=== PATIENT | female | born 1930 | race Caucasian/White ===

== ENCOUNTER 2018-11-18 16:36 | Inpatient (IN) ==
[2018-11-18 20:16] LABS: ALLEN TEST YES; BE -0.4 mmoll (-3.0-3.0); BLOOD TYPE ARTERIAL; HCO3-(ACT) 24.6 mmoll (20.0-26.0); METHB 1.3 % (0.0-1.5); O2(CT) 15.9 mL/dL (15.0-23.0); O2HB 96.3 % (95.0-99.0); PCO2(98.6) 38 mmHg (35-45); PO2(98.6) 106 mmHg (60-100); SAMPLE BLOOD; SAO2 98.6 % (95.0-100.0); THB 11.6 g/dL (11.5-17.4); pH(98.6) 7.41 (7.35-7.45)
[2018-11-18 20:17] LABS: MODALITY CANNULA
[2018-11-18] MEDS: LOVENOX SUBQ SCH (21:10)
[2018-11-18 21:12] LABS: BASO# 0.01 X1000 (0.0-0.2); BASO% 0.2 % (0.0-0.8); EOS# 0.19 X1000 (0.0-0.7); EOS% 3.2 % (0.0-10.0); HEMATOCRIT 35.8 % (37.0-47.0); HEMOGLOBIN 11.7 g/dL (12.0-16.0); IMM GRAN# 0.02 X1000 (0.0-0.04); IMM GRAN% 0.3 % (0.0-0.5); LYMPH# 1.75 X1000 (1.2-3.4); LYMPH% 29.8 % (20.5-51.1); MCH 29.3 PG (27-31); MCHC 32.7 g/dL (33-37); MCV 89.7 FL (81-99); MONO# 0.66 X1000 (0.11-0.59); MONO% 11.2 % (1.7-9.3); MPV 8.7 FL (7.4-10.4); NEUT# 3.25 X1000 (1.4-6.5); NEUT% 55.3 % (42.2-75.2); PLT 206 X1000 (130-400); RBC 3.99 XMIL (4.2-5.4); RDW 13.3 % (11.5-14.5); WBC 5.88 X1000 (4.8-10.8)
[2018-11-18 21:21] LABS: INR 1.13; PROTIME 14.7 Seconds (11.0-16.0)
[2018-11-18] MEDS: LEVAQUIN 500 MG/D5W 500 MG/100 ML IVPB IV SCH (21:23)
--- NOTE | 2018-11-18 21:28 | Diag Imaging Result Doc PS360 ---
CHEST-2 VIEWS - 11/18/2018 INDICATION: SOB COMPARISON: 06/19/2018 FINDINGS: There is a tiny opacity likely a small granuloma, in the lateral left costophrenic angle. Otherwise the lungs are clear of infiltrate. Heart size and pulmonary vascularity is normal. No pneumothorax or significant pleural effusion. Stable old compression fracture at L1. IMPRESSION: No acute process. Electronically signed by Russel Vanessa 11/18/2018 9:26 PM
[2018-11-18 21:38] LABS: CALCIUM 9.2 mg/dL (8.8-10.2); POTASSIUM 3.9 mmol/L (3.5-5.1)
[2018-11-18] MEDS ORDERED: SODIUM CHLORIDE 0.9% INJ SCH (21:45)
--- NOTE | 2018-11-18 22:07 | HISTORY AND PHYSICAL ---
CHIEF COMPLAINT: Barking cough, shortness of breath, wheezing. HPI: She is an 88-year-old white female was seen in my office today. Basically is the 3rd time with COPD exacerbation with bronchitis. Obviously patient was given 3 rounds of antibiotics without any help. She has nonproductive cough, dyspnea on exertion, wheezing. I did not find any significant rales. Clinical exam is compatible with laryngotracheitis associated with COPD exacerbation. She is taking 3 L oxygen. She cannot even go to the bathroom. Options are discussed and family decided to go to the hospital for aggressive bronchial toilet, IV antibiotics. PAST MEDICAL HISTORY: 1. COPD on oxygen 3 L. 2. 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 3. Compression fracture T11-T12. 4. Gout. 5. Hyperlipidemia. 6. Hypothyroidism. 7. Osteoarthritis. 8. Osteoporosis. 9. Incontinence of urine. PAST SURGICAL HISTORY: Varicose veins ligation in 1976, benign breast biopsy surgery, cholecystectomy, bilateral cataract surgery, hysterectomy in 1973. MEDICATIONS: In my office amitriptyline 75 mg daily, Brovana 1 b.i.d., Bumex 2 mg once daily, levothyroxine 125 mcg daily, potassium 10 mEq daily, Savella 50 mg daily, simvastatin 40 mg daily, tolterodine 2 mg daily, tramadol 50 p.o. b.i.d., patient was given multiple rounds of antibiotics. ALLERGIES: Not known. SOCIAL HISTORY: She is , 1 daughter, retired. No smoking. No alcohol. No drug abuse. Living in [place], living will, DNR. FAMILY HISTORY: Father at the age of 94 from heart attack. Mom is from COPD and heart attack. HEALTH MAINTENANCE: Reported as a living will DNR. Flu vaccine 2018, pneumococcal 2002, mammography 2019, DEXA scan 2018, colonoscopy more than 10 years ago. REVIEW OF SYSTEMS: HEENT: No headache, no vision problem. No earache. No sore throat. Neck: No goiter. No lymphadenopathy. No bruit . Cardiopulmonary: No chest pain, shortness of breath, cough, wheezing. No lumps in the breast. GI: No nausea, vomiting, abdominal pain. : No history of hesitancy, frequency, dysuria. No swelling of legs. No joint pain. Neuro: No focal symptoms or weakness. PHYSICAL EXAMINATION: Temperature is 98.4 degrees, pulse is 115, blood pressure 136/76, 3 L nasal cannula 93%, 5 feet 9, 185 pounds. HEENT: Mild respiratory distress. Atraumatic, normocephalic. TMs are normal. Nose and throat congested. Postnasal drainage. NECK: Supple. No neck rigidity and JVD is not elevated. CHEST: Bilateral wheezing. HEART: Sounds are distant. BREAST: Deferred. BELLY: Is soft, obese, nontender. Good bowel sounds. Trace pedal edema. No obvious neurological deficits. LABS: White cell count 5.8, hematocrit 35.8, platelets 206,000. PT 14, INR 1.13. ABG pH is 7.41, pCO2 38, PO2 106 on 3 L. Rest of the labs are pending. Chest x-ray stable. ASSESSMENT AND PLAN: 1. 88-year-old white female admitted to the hospital with acute chronic obstructive pulmonary disease exacerbation with laryngotracheitis. Plan is IV steroids, IV Levaquin and Zosyn. Oxygen protocol, bronchodilators. 2. DVT, GI prophylaxis as per order sheet. 3. Reconcile home medications and follow up on the pending labs and initiate vaccination protocol prior to the discharge. Living will, DNR. cc: Pavan Stanley MD [facility]
[2018-11-18] MEDS: PEPCID IV SCH (23:05)
[2018-11-18] MEDS: ZOSYN 3.375 GM in NS 50 ML IV SCH (23:05)
[2018-11-19] MEDS: ULTRAM PO PRN ×2 (01:46→20:12)
[2018-11-19] MEDS: ZOSYN 3.375 GM in NS 50 ML IV SCH ×4 (03:05→20:11)
[2018-11-19] MEDS: SOLU-MEDROL IV SCH (08:21)
[2018-11-19] MEDS: DETROL LA PO SCH (08:22)
[2018-11-19] MEDS: KLOR-CON PO SCH (08:22)
[2018-11-19] MEDS: CELEBREX PO SCH (08:22)
[2018-11-19] MEDS: BUMEX PO SCH (08:23)
[2018-11-19] MEDS: SAVELLA PO SCH (08:23)
[2018-11-19] MEDS: SYNTHROID PO SCH (08:34)
[2018-11-19] MEDS: PEPCID IV SCH ×2 (09:11→21:31)
[2018-11-19] MEDS: DUONEB (A & A) INH PRN ×3 (11:23→21:43)
[2018-11-19] MEDS: LEVAQUIN 500 MG/D5W 500 MG/100 ML IVPB IV SCH (18:14)
[2018-11-19] MEDS: ZOCOR PO SCH (20:12)
[2018-11-19] MEDS: LOVENOX SUBQ SCH (20:12)
--- NOTE | 2018-11-19 22:02 | PROGRESS NOTE ---
DATE: 11/19/2018 SUBJECTIVE: The patient is eating better, decreased wheezing, shortness of breath. Continues to have a barking cough, nonproductive in nature. REVIEW OF SYSTEMS: The patient denies of any chest pain. No fever. OBJECTIVE: Vital signs: Temperature is 98.2 degrees, pulse 66, blood pressure is 157/78, 100% on 3 L nasal cannula. HEENT: Exam within normal limits. Neck: Supple. Chest: Bilateral air entry. Expiratory wheezing. Cardiovascular: Heart sounds are regular. Abdomen: Belly is soft, nontender. Neurological: No obvious deficits. INVESTIGATIONS: CBC is normal. Chest x-ray was stable. ProBNP, cardiac enzymes were negative. ASSESSMENT AND PLAN: 1. Acute chronic obstructive pulmonary disease exacerbation with laryngotracheitis and bronchitis, not getting better with 3 rounds of antibiotics. Continue on IV steroids and IV Levaquin and Zosyn, oxygen, bronchodilators. 2. Follow up EKG. Cardiac enzymes are negative. 3. Living will DNR. 4. Initiate vaccination protocol prior to the discharge. Continue present treatment. LEVEL OF DOCUMENTATION: 25 minutes. cc: Pavan Stanley MD
[2018-11-20] MEDS: ZOSYN 3.375 GM in NS 50 ML IV SCH ×4 (01:10→22:19)
[2018-11-20] MEDS: SYNTHROID PO SCH (06:13)
[2018-11-20] MEDS: BUMEX PO SCH (09:04)
[2018-11-20] MEDS: KLOR-CON PO SCH (09:04)
[2018-11-20] MEDS: SAVELLA PO SCH (09:05)
[2018-11-20] MEDS: DETROL LA PO SCH (09:05)
[2018-11-20] MEDS: CELEBREX PO SCH (09:05)
[2018-11-20] MEDS: SOLU-MEDROL IV SCH (09:05)
[2018-11-20] MEDS: DUONEB (A & A) INH PRN (11:41)
[2018-11-20] MEDS ORDERED: ATIVAN IV ONE ×2 (17:02→20:39)
[2018-11-20] MEDS: LEVAQUIN 500 MG/D5W 500 MG/100 ML IVPB IV SCH (18:16)
--- NOTE | 2018-11-20 20:57 | PROGRESS NOTE ---
DATE: 11/20/2018 SUBJECTIVE: The patient's breathing is better, slightly confused, sundown affect in the evening. Barking cough is still there. No wheezing. PHYSICAL EXAM: Vital signs: Afebrile vitals are stable. HEENT: Within normal limits. Neck: Supple. Chest: Bilateral air entry. Heart: Sounds are regular. Abdomen: Belly is soft, nontender. Neurologic: No obvious deficits. INVESTIGATIONS: Stable. ASSESSMENT AND PLAN: 1. Acute chronic obstructive pulmonary disease exacerbation with laryngotracheitis, not able to felipe. Continue present treatment. 2. Deep vein thrombosis and gastrointestinal prophylaxis as per order sheet. Decrease the steroids. 3. Hugo affect with confusion. We will give Ativan as needed and will discuss with the family and continue present treatment. LEVEL OF DOCUMENTATION: 35 minutes. cc: Pavan Stanley MD
[2018-11-20] MEDS ORDERED: ATIVAN IM ONE (21:03)
[2018-11-20] MEDS ORDERED: HALDOL IM ONE (21:04)
[2018-11-20] MEDS: LOVENOX SUBQ SCH (21:47)
[2018-11-20] MEDS: PEPCID PO SCH (21:48)
[2018-11-20] MEDS: ZOCOR PO SCH (21:48)
[2018-11-21] MEDS: ZOSYN 3.375 GM in NS 50 ML IV SCH ×4 (06:24→19:54)
[2018-11-21] MEDS: SYNTHROID PO SCH (06:24)
[2018-11-21] MEDS: CELEBREX PO SCH (09:02)
[2018-11-21] MEDS: KLOR-CON PO SCH (09:02)
[2018-11-21] MEDS: PEPCID PO SCH ×2 (09:02→20:45)
[2018-11-21] MEDS: SOLU-MEDROL IV SCH (09:02)
[2018-11-21] MEDS: BUMEX PO SCH (09:02)
[2018-11-21] MEDS: SAVELLA PO SCH (09:28)
[2018-11-21] MEDS: DETROL LA PO SCH (09:28)
[2018-11-21] MEDS: LEVAQUIN 500 MG/D5W 500 MG/100 ML IVPB IV SCH (18:13)
[2018-11-21] MEDS: ULTRAM PO PRN (19:25)
[2018-11-21] MEDS ORDERED: GEODON IM ONE (19:50)
[2018-11-21] MEDS ORDERED: STERILE WATER INJ. INJ PRN (19:50)
[2018-11-21] MEDS ORDERED: STERILE WATER INJ. INJ ONE (19:50)
[2018-11-21] MEDS: CARDIZEM 125 MG/D5W 125 MG/125 ML IVPB IV SCH (20:44)
[2018-11-21] MEDS: ZOCOR PO SCH (20:45)
[2018-11-21] MEDS: LOVENOX SUBQ SCH (20:46)
--- NOTE | 2018-11-21 20:56 | EKG Report ---
Test Performed on : 11/21/2018 7:35:34 PM Test Reason : HR Blood Pressure : / mmHG Vent. Rate : 114 BPM Atrial Rate : 125 BPM P-R Int : 000 ms QRS Dur : 080 ms QT Int : 328 ms P-R-T Axes : 000 -13 -06 degrees QTc Int : 452 ms Atrial fibrillation. with rapid ventricular response. Moderate voltage criteria for LVH, may be normal variant ST elevation, consider inferior injury or acute infarct ACUTE LA / STEMI Consider right ventricular involvement in acute inferior infarct Abnormal ECG When compared with ECG of Nov-[address] elevation is new, as is ST depression in aVL, ventricular rate is faster Confirmed by Citlali QUINTANILLA, Jere Randolph ([id number]) on 11/21/2018 9:04:30 PM
[2018-11-21 21:14] LABS: CK INDEX 2.8 (0.0-2.5); CK-MB 7.15 ng/mL (0.0-5.0)
--- NOTE | 2018-11-21 21:48 | PROGRESS NOTE ---
DATE: 11/21/2018 SUBJECTIVE: Last night patient has sundown affect. Gave Adderall, Arielle, transferred to the ICU. She is anxious to go home. This morning she was a little bit docile. Family was at bedside. This afternoon the patient started having atrial fibrillation. OBJECTIVE: On examination afebrile, vitals are stable. The patient was sedated. Chest is clear. Irregular heart sounds. Belly is soft, nontender. No obvious deficits. INVESTIGATIONS: Cardiac enzymes were slightly positive. Troponin was negative. ProBNP 333. Chest x-ray was stable. ASSESSMENT AND PLAN: 1. Altered mental status due to delirium tremens. 2. Acute chronic obstructive pulmonary disease. Continue present treatment. 3. New onset of atrial fibrillation and Dr. Barragan ordered a Cardizem drip and cardiac enzymes. 4. Deep vein thrombosis and gastrointestinal prophylaxis as per order sheet. We will hold the discharge and will follow up cardiac enzymes. cc: Pavan Stanley MD
[2018-11-22] MEDS: ZOSYN 3.375 GM in NS 50 ML IV SCH ×4 (02:45→21:00)
[2018-11-22 05:12] LABS: BASO# 0.01 X1000 (0.0-0.2); BASO% 0.1 % (0.0-0.8); EOS# 0.01 X1000 (0.0-0.7); EOS% 0.1 % (0.0-10.0); HEMATOCRIT 37.3 % (37.0-47.0); HEMOGLOBIN 12.5 g/dL (12.0-16.0); LYMPH# 2.18 X1000 (1.2-3.4); LYMPH% 26.4 % (20.5-51.1); MCH 29.5 PG (27-31); MCHC 33.5 g/dL (33-37); MONO# 1.06 X1000 (0.11-0.59); MONO% 12.8 % (1.7-9.3); MPV 9.4 FL (7.4-10.4); NEUT# 5.01 X1000 (1.4-6.5); NEUT% 60.6 % (42.2-75.2); PLT 210 X1000 (130-400); RBC 4.24 XMIL (4.2-5.4); RDW 13.4 % (11.5-14.5); WBC 8.27 X1000 (4.8-10.8)
[2018-11-22] MEDS: SYNTHROID PO SCH (06:28)
--- NOTE | 2018-11-22 07:03 | EKG Report ---
Test Performed on : 11/22/2018 06:42:41 AM Test Reason : cp Blood Pressure : / mmHG Vent. Rate : 062 BPM Atrial Rate : 062 BPM P-R Int : 174 ms QRS Dur : 076 ms QT Int : 422 ms P-R-T Axes : -45 010 037 degrees QTc Int : 428 ms Unusual P axis, possible ectopic atrial rhythm. with premature atrial complexes. Low voltage QRS Abnormal ECG When compared with ECG of 21-NOV-2018 19:35, Ectopic atrial rhythm. has replaced Atrial fibrillation. Vent. rate has decreased BY [address] no longer elevated in Inferior leads ST no longer depressed in Lateral leads Nonspecific T wave abnormality has replaced inverted T waves in Inferior leads Nonspecific T wave abnormality no longer evident in Anterior leads Confirmed by Citlali QUINTANILLA, Jere Randolph ([id number]) on 11/22/2018 1:58:03 PM
[2018-11-22] MEDS: SAVELLA PO SCH (08:56)
[2018-11-22] MEDS: PEPCID PO SCH ×2 (08:56→21:14)
[2018-11-22] MEDS: SOLU-MEDROL IV SCH (08:56)
[2018-11-22] MEDS: BUMEX PO SCH (08:57)
[2018-11-22] MEDS: KLOR-CON PO SCH (08:57)
[2018-11-22] MEDS: CELEBREX PO SCH (08:57)
[2018-11-22] MEDS: DETROL LA PO SCH (08:57)
[2018-11-22] MEDS ORDERED: CARDIZEM IV ONE (14:18)
--- NOTE | 2018-11-22 17:23 | ECHO REPORT ---
ORDER DATE: 11/22/2018 ECHOCARDIOGRAPHIC MEASUREMENTS: 1. Interventricular septum 1.1. 2. Left ventricular posterior wall 1.1. 3. Diastolic diameter 4.0. 4. Left atrium 4. 5. Aorta 3.6. SUMMARY OF THE TWO-DIMENSIONAL IMAGIN. Mitral valve was normal. 2. Pulmonic valve was normal. 3. Aortic valve leaflets were trileaflet. 4. Tricuspid valve was normal. 5. There is mitral annular calcification. 6. There is left atrial enlargement. 7. Mild tricuspid regurgitation. Peak velocity across the tricuspid valve was 2.4 m/sec. 8. Pulmonary artery systolic pressure of 33 mmHg. 9. Peak velocity across the aortic valve less than 2 m/sec. There is no aortic stenosis or regurgitation. 10. Normal left ventricular cavity size. Estimated ejection fraction of 65%. 11. There is atrial fibrillation noted. 12. There is [id number] mitral regurgitation. 13. Anterior echo-free space suggestive of pericardial fat pad noted. There is no pericardial effusion or obvious intracardiac mass or thrombus seen. cc: MD Sonny Oglesby MD Jagan Reddy, MD MTDD
[2018-11-22] MEDS: LOVENOX SUBQ SCH (17:50)
[2018-11-22] MEDS: LEVAQUIN 500 MG/D5W 500 MG/100 ML IVPB IV SCH (17:50)
--- NOTE | 2018-11-22 17:57 | PROGRESS NOTE ---
DATE: 11/22/2018 SUBJECTIVE: The patient is now stable. Mental confusion is better. Currently, in sinus, off Cardizem drip. Echocardiography findings noted EF is 65%. No chest pain. No cough. OBJECTIVE: Vitals: Stable. HEENT: Within normal limits. Neck: Supple. Decreased wheezing. Heart sounds are regular. No obvious deficits. INVESTIGATIONS: Cardiac enzymes were normal. TSH is normal. ASSESSMENT AND PLAN: 1. Paroxysmal atrial fibrillation. Normal TSH. Normal echo. Ruled out for myocardial infarction. High risk for strokes. We will discuss with the family. 2. Chronic obstructive pulmonary disease with bronchitis. Continue present treatment. 3. Delirium. Improving. 4. Appreciated Cardiology consult. Currently, on Lovenox 80 mg subcutaneous q.12. We will discuss with Dr. Brown about the transitioning of anticoagulation. LEVEL OF DOCUMENTATION: 25 minutes. cc: Pavan Stanley MD
--- NOTE | 2018-11-22 18:11 | CONSULTATION ---
DATE OF CONSULTATION: 11/22/2018 IMPRESSION: 1. Atypical atrial flutter with increased ventricular rate response now better controlled on intravenous Cardizem. 2. Chronic obstructive pulmonary disease with recent problems with persistently recurrent bronchitis prompting hospitalization after failure of outpatient management to improve patient's respiratory problems. 3. Hyperlipidemia. 4. Hypothyroidism. 5. Blind left eye due to macular degeneration. RECOMMENDATIONS: 1. Continue intravenous Cardizem for rate control. Ultimately transition to oral Cardizem. 2. Followup echocardiography. 3. If atypical atrial flutter persists, may need to consider anticoagulation for thromboembolic risk protection. HISTORY: This 88-year-old white female with past history of COPD, hyperlipidemia and hypothyroidism was admitted for further management of COPD exacerbation with bronchitis refractory to outpatient management. She continues with cough productive of yellow sputum as well as exertional dyspnea and wheezing. She has been treated with antibiotics for 3 rounds as an outpatient and continues to remain symptomatic with exertional dyspnea and wheezing. She is asymptomatic from a cardiac standpoint. There is no palpitations or chest pain. There is no orthopnea. She is not aware of any previous cardiac problems. On admission, she was found to be in an atrial tachyarrhythmia which upon further review appears to be atypical atrial flutter. Intravenous Cardizem started and heart rate has come under better control. PAST MEDICAL HISTORY: 1. Chronic obstructive pulmonary disease with chronic recurrent bronchitis. 2. Hyperlipidemia. 3. Hypothyroidism. 4. Macular degeneration causing blindness in left eye. 5. Osteoporosis and osteoarthritis. 6. Gout. 7. Compression fracture T11 to T12. PAST SURGICAL HISTORY: Includes varicose vein ligation 1976, benign breast biopsy, cholecystectomy, bilateral cataract surgery, and hysterectomy. ALLERGIES: She has no known drug allergies. MEDICATIONS PRIOR TO ADMISSION: As listed. SOCIAL HISTORY: She is . She does not smoke having quit at least 20 years ago. She does not use alcohol. She remains fairly independent. FAMILY HISTORY: Negative for premature coronary disease. REVIEW OF SYSTEMS: Pulmonary: Noncontributory beyond history of present illness. Gastrointestinal: Negative. Constitutional: Negative. Remainder review of systems negative/noncontributory beyond history of present illness with 14 total systems reviewed. PHYSICAL EXAMINATION: General: This is a elderly white female in no distress on supplemental oxygen. Vital signs: Blood pressure 111/75, heart rate 89, oxygen saturation 98% on nasal cannula oxygen. HEENT: Extraocular movements appear intact. Mucous membranes are moist. Neck: Supple without jugular distention. There are no carotid bruits. Chest: Clear to auscultation bilaterally. Cardiac: Reveals a regular rate and rhythm without appreciable murmur or gallop. Abdomen: Soft. Bowel sounds are normal. Extremities: Without edema. Neurologic: Reveals her to be alert and fully oriented. Speech is fluent. She moves all 4 extremities equally well. Skin: Warm, dry. Psychiatric: Reveals mood to be appropriate. DATA: EKG on admission demonstrates atypical atrial flutter with diminutive flutter waves, minimal voltage criteria for left hypertrophy and nonspecific ST and T-wave abnormality. LABORATORY DATA: Includes white blood cell count 8.27, hematocrit 37.5, hemoglobin 12.5, platelet count 210,000. Sodium 139, potassium 3.9, chloride 103, carbon dioxide 26, BUN 15, creatinine 1.0, glucose 107. Initial troponin less than 0.01. Followup troponin less 0.01 and less than 0.01 consecutively. TSH 0.44. cc: MD Pavan Espinoza MD
[2018-11-22] MEDS: ULTRAM PO PRN (21:14)
[2018-11-22] MEDS: ZOCOR PO SCH (21:14)
[2018-11-22] MEDS: CARDIZEM 125 MG/D5W 125 MG/125 ML IVPB IV SCH (22:28)
[2018-11-23] MEDS: ZOSYN 3.375 GM in NS 50 ML IV SCH ×4 (03:00→20:49)
[2018-11-23] MEDS: ULTRAM PO PRN ×3 (04:01→20:49)
[2018-11-23] MEDS: LOVENOX SUBQ SCH ×2 (05:18→17:11)
[2018-11-23] MEDS: SYNTHROID PO SCH ×2 (05:18→06:56)
[2018-11-23] MEDS: PEPCID PO SCH ×2 (08:33→20:50)
[2018-11-23] MEDS: KLOR-CON PO SCH (08:33)
[2018-11-23] MEDS: CELEBREX PO SCH (08:33)
[2018-11-23] MEDS: SAVELLA PO SCH (08:33)
[2018-11-23] MEDS: DETROL LA PO SCH (08:33)
[2018-11-23] MEDS: BUMEX PO SCH (08:34)
[2018-11-23] MEDS: SOLU-MEDROL IV SCH (08:37)
[2018-11-23] MEDS: GEODON IM PRN (10:42)
--- NOTE | 2018-11-23 12:47 | PROGRESS NOTE ---
DATE: 11/23/2018 SUBJECTIVE: The patient is a little better. Depressed regarding the with intracerebral bleeding last year. No chest pain. No cough. Still in atrial fibrillation. PHYSICAL EXAMINATION: Vital signs: Temperature is afebrile. Vitals are stable. Irregular. HEENT: Within normal limits. Neck: Supple. No lymphadenopathy. Chest: Bilateral air entry. No wheezing. Heart: Distant heart sounds. Abdomen: Belly is soft, obese, nontender. Good bowel sounds. Neurologic: No obvious deficits. DIAGNOSTIC DATA: Cardiac enzymes were negative. TSH is normal. ASSESSMENT AND PLAN: 1. Atrial fibrillation, intermittent. Needs anticoagulation. Currently on Lovenox. We will slowly change as per Dr. Bronw. 2. Rate controlled with diltiazem. 3. Chronic obstructive pulmonary disease with bronchitis, this is better on Levaquin and Zosyn. I am going to decrease steroids to 40 mg daily. 4. Depression, on Savella, and will continue to monitor. LEVEL OF DOCUMENTATION: 25 minutes. cc: Pavan Stanley MD
[2018-11-23] MEDS: LEVAQUIN 500 MG/D5W 500 MG/100 ML IVPB IV SCH (17:46)
[2018-11-23] MEDS: ZOCOR PO SCH (20:50)
[2018-11-23] MEDS: CARDIZEM 125 MG/D5W 125 MG/125 ML IVPB IV SCH (23:56)
[2018-11-24] MEDS: ZOSYN 3.375 GM in NS 50 ML IV SCH ×4 (03:00→20:55)
[2018-11-24] MEDS: SYNTHROID PO SCH ×2 (05:20→12:17)
[2018-11-24] MEDS: LOVENOX SUBQ SCH (05:20)
[2018-11-24] MEDS: BUMEX PO SCH (08:31)
[2018-11-24] MEDS: DETROL LA PO SCH (08:31)
[2018-11-24] MEDS: KLOR-CON PO SCH (08:31)
[2018-11-24] MEDS: PEPCID PO SCH ×2 (08:31→20:55)
[2018-11-24] MEDS: CELEBREX PO SCH (08:31)
[2018-11-24] MEDS: SOLU-MEDROL IV SCH (08:32)
[2018-11-24] MEDS: SAVELLA PO SCH (08:32)
[2018-11-24] MEDS ORDERED: CARDIZEM CD PO ONE (13:18)
--- NOTE | 2018-11-24 14:06 | PROGRESS NOTE ---
DATE: 11/24/2018 SUBJECT: Patient is better. Still atrial flutter. Rate is well controlled. REVIEW OF SYSTEMS: None reported and cough is much improved. Temperature is 98.7 degrees, pulse 92, blood pressure is 107/73.HEENT: Within normal limits. Neck: Supple. No lymphadenopathy. Chest: Bilateral air entry. Irregular heart sounds. Belly: Soft, nontender. Good bowel sounds. No obvious deficits. INVESTIGATIONS: None reported. ASSESSMENT AND PLAN: 1. Chronic obstructive pulmonary disease, bronchitis better. 2. Atrial fibrillation rate control and anticoagulation on Cardizem drip and Dr. Moreno is changing to Eliquis 5 mg p.o. b.i.d. and Cardizem and slowly move her out of the ICU into step- down and continue present treatment for depression. LEVEL OF DOCUMENTATION: 25 minutes. cc: Pavan Stanley MD
[2018-11-24] MEDS: LEVAQUIN 500 MG/D5W 500 MG/100 ML IVPB IV SCH (19:03)
[2018-11-24] MEDS: ELIQUIS PO SCH (20:55)
[2018-11-24] MEDS: ULTRAM PO PRN (20:55)
[2018-11-24] MEDS: ZOCOR PO SCH (20:56)
[2018-11-24] MEDS: GEODON IM PRN (21:20)
[2018-11-25] MEDS: ZOSYN 3.375 GM in NS 50 ML IV SCH ×4 (02:59→19:31)
[2018-11-25] MEDS: SYNTHROID PO SCH (06:57)
[2018-11-25 07:17] LABS: BASO# 0.02 X1000 (0.0-0.2); BASO% 0.1 % (0.0-0.8); HEMATOCRIT 43.7 % (37.0-47.0); HEMOGLOBIN 14.7 g/dL (12.0-16.0); IMM GRAN% 0.5 % (0.0-0.5); LYMPH# 2.32 X1000 (1.2-3.4); LYMPH% 12.3 % (20.5-51.1); MCH 29.2 PG (27-31); MCHC 33.6 g/dL (33-37); MCV 86.9 FL (81-99); MONO# 1.96 X1000 (0.11-0.59); MONO% 10.4 % (1.7-9.3); MPV 9.8 FL (7.4-10.4); NEUT# 14.42 X1000 (1.4-6.5); NEUT% 76.7 % (42.2-75.2); PLT 391 X1000 (130-400); RBC 5.03 XMIL (4.2-5.4); RDW 13.5 % (11.5-14.5); WBC 18.82 X1000 (4.8-10.8)
[2018-11-25 07:29] LABS: CALCIUM 9.7 mg/dL (8.8-10.2); CREATININE 1.5 mg/dL (0.5-0.9); POTASSIUM 3.6 mmol/L (3.5-5.1)
[2018-11-25] MEDS: SAVELLA PO SCH (08:28)
[2018-11-25] MEDS: BUMEX PO SCH (08:28)
[2018-11-25] MEDS: SOLU-MEDROL IV SCH (08:28)
[2018-11-25] MEDS: CARDIZEM CD PO SCH (08:28)
[2018-11-25] MEDS: CELEBREX PO SCH (08:28)
[2018-11-25] MEDS: ELIQUIS PO SCH ×2 (08:28→19:31)
[2018-11-25] MEDS: PEPCID PO SCH ×2 (08:28→19:31)
[2018-11-25] MEDS: KLOR-CON PO SCH (08:28)
[2018-11-25] MEDS: DETROL LA PO SCH (08:29)
[2018-11-25 10:15] LABS: BASO# 0.01 X1000 (0.0-0.2); BASO% 0.1 % (0.0-0.8); HEMATOCRIT 42.6 % (37.0-47.0); HEMOGLOBIN 14.6 g/dL (12.0-16.0); LYMPH# 1.81 X1000 (1.2-3.4); LYMPH% 10.4 % (20.5-51.1); MCH 30.4 PG (27-31); MCHC 34.3 g/dL (33-37); MCV 88.8 FL (81-99); MONO# 1.57 X1000 (0.11-0.59); MONO% 9.1 % (1.7-9.3); MPV 9.4 FL (7.4-10.4); NEUT# 13.95 X1000 (1.4-6.5); NEUT% 80.4 % (42.2-75.2); PLT 364 X1000 (130-400); RDW 13.8 % (11.5-14.5); WBC 17.34 X1000 (4.8-10.8)
[2018-11-25 10:32] LABS: BANDS 3 % (0-1); LYMPHS 20 % (21-51); MONO 6 % (1-9); SEGS 70 % (42-75)
--- NOTE | 2018-11-25 11:45 | Diag Imaging Result Doc PS360 ---
EXAM: CHEST-1 VIEW HISTORY: sepsis protocol TECHNIQUE: Chest single view COMPARISON: 11/18/2018 FINDINGS: The lungs are well expanded. The heart is not enlarged. The vessels are not distended. There are no infiltrates. No effusion identified. IMPRESSION: No pneumonia Electronically signed by Juan Peters 11/25/2018 11:43 AM
[2018-11-25 12:59] LABS: BASO# 0.01 X1000 (0.0-0.2); BASO% 0.1 % (0.0-0.8); HEMATOCRIT 41.2 % (37.0-47.0); HEMOGLOBIN 13.7 g/dL (12.0-16.0); IMM GRAN# 0.08 X1000 (0.0-0.04); IMM GRAN% 0.5 % (0.0-0.5); LYMPH# 0.85 X1000 (1.2-3.4); LYMPH% 5.3 % (20.5-51.1); MCH 29.3 PG (27-31); MCHC 33.3 g/dL (33-37); MONO# 1.04 X1000 (0.11-0.59); MONO% 6.5 % (1.7-9.3); MPV 9.8 FL (7.4-10.4); NEUT# 13.92 X1000 (1.4-6.5); NEUT% 87.6 % (42.2-75.2); PLT 339 X1000 (130-400); RBC 4.68 XMIL (4.2-5.4); RDW 13.4 % (11.5-14.5)
[2018-11-25 13:07] LABS: INR 1.46
[2018-11-25 13:08] LABS: PTT 34.2 Seconds (22.3-41.8)
[2018-11-25 13:17] LABS: ALB/GLOB RATIO 1.3; CALCIUM 9.6 mg/dL (8.8-10.2); CREATININE 1.5 mg/dL (0.5-0.9); TOTAL BILIRUBIN 0.3 mg/dL (0.20-1.00)
[2018-11-25 13:27] LABS: BANDS 2 % (0-1); LARGE PLATELETS 1+; LYMPHS 6 % (21-51); SEGS 92 % (42-75)
[2018-11-25] MEDS: XANAX PO ONE ×2 (15:14→15:31)
[2018-11-25] MEDS: GEODON IM PRN (15:24)
--- NOTE | 2018-11-25 19:20 | PROGRESS NOTE ---
DATE: 11/25/2018 SUBJECTIVE: The patient is very remorseful about the past and crying a lot and depressed and still in atrial fibrillation. Barking cough is improved. OBJECTIVE: Vital Signs: Tachycardic, vitals are stable. HEENT: Within normal limits. Neck: Supple. No lymphadenopathy. Heart: Sounds are irregular. Chest: Clear. Neurologic: No obvious neurological deficits. ASSESSMENT AND PLAN: 1. Acute chronic obstructive pulmonary disease exacerbation is better and continue IV antibiotics and cut down the steroids. 2. Complicated grief. Geodon was given. The patient is better. 3. Depression. Continue antidepressants and atrial fibrillation rate control with Cardizem and Eliquis. 4. Taffy Candy Maker consult for rehab placement and will follow up. LEVEL OF DOCUMENTATION: 25 minutes. cc: Pavan Stanley MD
[2018-11-25] MEDS: ULTRAM PO PRN (19:30)
[2018-11-25] MEDS: ZOCOR PO SCH (19:31)
[2018-11-25] MEDS: LEVAQUIN 500 MG/D5W 500 MG/100 ML IVPB IV SCH (19:31)
[2018-11-26] MEDS: ZOSYN 3.375 GM in NS 50 ML IV SCH ×4 (03:21→21:05)
[2018-11-26] MEDS: ELIQUIS PO SCH ×3 (03:22→21:05)
[2018-11-26] MEDS: PEPCID PO SCH ×3 (03:22→21:06)
[2018-11-26] MEDS: ZOCOR PO SCH ×2 (03:22→21:06)
[2018-11-26] MEDS: SYNTHROID PO SCH (06:38)
[2018-11-26 06:50] LABS: URINE SOURCE CLEAN CATCH
[2018-11-26 07:00] LABS: BILIRUBIN URINE NEGATIVE (NEGATIVE); BLOOD URINE MODERATE (NEGATIVE); COLOR YELLOW; GLUCOSE URINE NEGATIVE (NEGATIVE); KETONE URINE NEGATIVE (NEGATIVE); LEUKOCYTES URINE NEGATIVE (NEGATIVE); NITRITE URINE NEGATIVE (NEGATIVE); PH URINE 6.5; PROTEIN URINE 50 mg/dL (NEGATIVE); SP GRAVITY URINE 1.017; TURBIDITY URINE CLEAR (CLEAR); UROBILINOGEN URINE NORMAL (NORMAL)
[2018-11-26 07:01] LABS: UR EPITHELIAL CELLS <10 /HPF (<10); URINE BACTERIA NEGATIVE /HPF; URINE RBC TNTC /HPF (<10); URINE WBC <10 /HPF (<10)
[2018-11-26] MEDS: SOLU-MEDROL IV SCH (08:50)
[2018-11-26] MEDS: CARDIZEM CD PO SCH (08:51)
[2018-11-26] MEDS: CELEBREX PO SCH (08:51)
[2018-11-26] MEDS: KLOR-CON PO SCH (08:52)
[2018-11-26] MEDS: DETROL LA PO SCH (08:52)
[2018-11-26] MEDS: SAVELLA PO SCH (08:52)
[2018-11-26] MEDS: BUMEX PO SCH (08:53)
[2018-11-26] MEDS: LEVAQUIN 500 MG/D5W 500 MG/100 ML IVPB IV SCH (21:05)
[2018-11-26] MEDS: ULTRAM PO PRN (21:05)
[2018-11-26] MEDS ORDERED: PREVNAR 13 IM ONE (22:33)
[2018-11-26] MEDS ORDERED: FLU VACCINE IM ONE (22:33)
[2018-11-26] MEDS ORDERED: PNEUMOVAX 23 IM ONE (22:45)
--- NOTE | 2018-11-26 22:51 | DISCHARGE SUMMARY ---
ADMISSION DATE: 11/18/2018 DISCHARGE DATE: 11/27/2018 DISCHARGING DIAGNOSIS: Acute chronic obstructive pulmonary disease exacerbation with laryngotracheitis. SECONDARY DIAGNOSES: 1. Atrial fibrillation, chronic. 2. Legally blind in the left eye due to macular degeneration. 3. Compression fracture T11-T12 due to osteoporosis. 4. Gout. 5. Hyperlipidemia. 6. Hypothyroidism. 7. Osteoarthritis. 8. Incontinence of urine. 9. Depression with complicated grief. CONSULT: Stephanie Dennis. PROCEDURES: Echocardiography with Doppler. Findings of ejection fraction 65%. No significant valvular heart disease seen. No wall motion abnormalities. BRIEF HISTORY: Please see the H and P that was done on 11/18/2018. In brief, she is an 88-year- old white female basically admitted to the hospital with failure of outpatient treatment with incessant cough, barking, shortness of breath, wheezing on oxygen. She was wheezing and no signs of pneumonitis. As a result, a hospital admission was warranted. I am going to summarize the problems as follows: 1. For COPD exacerbation, she was given IV steroids, IV Levaquin and Zosyn and bronchodilators. The symptoms were improving. In the meantime, patient developed irregular heartbeat with rapid atrial fibrillation and flutter. As a result, she was transferred to the ICU. 2. In the ICU, the patient was started on IV Cardizem drip followed by anticoagulation based on the SYDNI Vasc score risk. Thyroid function test was normal. Ruled out for NC by cardiac enzymes. Dr. Gorman was consulted. At this time, there is no significant valvular heart disease seen. The patient was relegated to rate control with Cardizem and Eliquis for stroke prevention. 3. During the ICU, the patient has emotional breakdown remorseful due to 's last year. She was given Geodon and that really helped. 4. At the request of the family, she will be transferred to [facility]. At the time of discharge, the patient is stable. LABS: CBC: White cell count 8.3, hematocrit 42, platelets 339,000. PT 18, INR 1.46. ABG: pH is 7.41, pCO2 38, PO2 106 on 32%. Sodium 140, potassium 4, BUN 34, creatinine 1.5, and cardiac enzymes troponin were negative. TSH is normal. ProBNP is normal. Blood cultures were negative. DISCHARGE INSTRUCTIONS: 1. Pneumococcal vaccine 23 was given in 2017. 2. Living will DNR. 3. Oxygen 1 L as needed, simvastatin 40 mg daily, Synthroid 125 mcg daily, Detrol 4 mg daily, Savella 50 mg daily, Bumex we will decrease to 1 mg daily, potassium 20 mEq daily, Celebrex 200 daily, desipramine 10 mg daily, Seroquel 25 at bedtime, Cardizem 120 daily. Will discharge to rehab and follow up as an outpatient. The initial vaccination protocol prior to the discharge including influenza vaccine and pneumococcal 13 vaccine. cc: Pavan Stanley MD
--- NOTE | 2018-11-27 00:18 | PROGRESS NOTE ---
DATE: 11/26/2018 SUBJECTIVE: The patient is very remorseful and depressed, crying. OBJECTIVE: Vital Signs: Stable. HEENT: Within normal limits. Neck: Supple. Chest: Bilateral air entry. Heart: Sounds are regular. Abdomen: Belly is soft, nontender. Neurologic: No obvious deficits. ASSESSMENT AND PLAN: 1. Upper respiratory infection symptoms with bronchitis, significant improvement. 2. Atrial fibrillation. Rate controlled, anticoagulation. 3. Severe depression. Continue on present treatment. 4. Rehab placement in the morning. We will discharge her in the morning. Slowly change to medicines by mouth. The patient needs some counseling. We will ask mental evaluation in the rehab place. 5. Living will, DNR. LEVEL OF DOCUMENTATION: 25 minutes. cc: Pavan Stanley MD
[2018-11-27] MEDS: ZOSYN 3.375 GM in NS 50 ML IV SCH (03:59)
[2018-11-27] MEDS: SYNTHROID PO SCH (06:38)
[2018-11-27] MEDS: CARDIZEM CD PO SCH (08:50)
[2018-11-27] MEDS: PEPCID PO SCH (08:51)
[2018-11-27] MEDS: SOLU-MEDROL IV SCH (08:51)
[2018-11-27] MEDS: KLOR-CON PO SCH (08:51)
[2018-11-27] MEDS: CELEBREX PO SCH (08:51)
[2018-11-27] MEDS: DETROL LA PO SCH (08:51)
[2018-11-27] MEDS: SAVELLA PO SCH (08:52)
[2018-11-27] MEDS: ELIQUIS PO SCH (08:52)
[2018-11-27] MEDS ORDERED: BUMEX PO SCH (09:00)
[2018-11-27 11:58] VITALS: BP 147/90
== END 2018-11-27 13:33 | DRG 191 ==
LOC: DIRADM 16:36 → 1N 18:38 → ICU 11-20 22:19 → 4N 11-24 17:54
PROVIDERS: ADMIT Internal Medicine; ATTEND Internal Medicine

== ENCOUNTER 2019-05-02 14:14 | Inpatient (IN) ==
[2019-05-02] MEDS ORDERED: LASIX IV ONE (17:15)
[2019-05-02] MEDS: PEPCID PO SCH (17:56)
[2019-05-02] MEDS: LASIX IV SCH (17:56)
[2019-05-02] MEDS: ZOSYN 3.375 GM in NS 50 ML IV SCH ×2 (18:00→22:51)
[2019-05-02 18:14] LABS: BASO# 0.07 X1000 (0.0-0.2); BASO% 0.8 % (0.0-0.8); EOS# 0.13 X1000 (0.0-0.7); EOS% 1.4 % (0.0-10.0); HEMATOCRIT 37.4 % (37.0-47.0); HEMOGLOBIN 12.1 g/dL (12.0-16.0); IMM GRAN# 0.04 X1000 (0.0-0.04); IMM GRAN% 0.4 % (0.0-0.5); LYMPH# 1.58 X1000 (1.2-3.4); MCHC 32.4 g/dL (33-37); MCV 89.7 FL (81-99); MONO# 1.08 X1000 (0.11-0.59); MONO% 11.6 % (1.7-9.3); MPV 9.4 FL (7.4-10.4); NEUT# 6.38 X1000 (1.4-6.5); NEUT% 68.8 % (42.2-75.2); PLT 290 X1000 (130-400); RBC 4.17 XMIL (4.2-5.4); RDW 13.7 % (11.5-14.5); WBC 9.28 X1000 (4.8-10.8)
[2019-05-02 18:30] LABS: ALB/GLOB RATIO 1.1; ALBUMIN 3.6 g/dL (3.5-5.0); CALCIUM 9.3 mg/dL (8.8-10.2); CREATININE 1.1 mg/dL (0.5-0.9); POTASSIUM 3.5 mmol/L (3.5-5.1); TOTAL BILIRUBIN 0.51 mg/dL (0.20-1.00)
--- NOTE | 2019-05-02 19:25 | EKG Report ---
Test Performed on : 05/02/2019 6:00:44 PM Test Reason : chest pain Blood Pressure : / mmHG Vent. Rate : 079 BPM Atrial Rate : 234 BPM P-R Int : 000 ms QRS Dur : 076 ms QT Int : 402 ms P-R-T Axes : 000 -04 008 degrees QTc Int : 460 ms Atrial fibrillation. Cannot rule out Anterior infarct , age undetermined Nonspecific T wave abnormality Anterior leads Abnormal ECG When compared with ECG of 22-NOV-2018 06:42, Atrial fibrillation. has replaced Ectopic atrial rhythm. Minimal criteria for Anterior infarct are now present Nonspecific T wave abnormality now evident in Anterior leads Confirmed by Guanaco Otero MD ([id number]) on 05/03/2019 11:00:30 AM
--- NOTE | 2019-05-02 19:44 | HISTORY AND PHYSICAL ---
CHIEF COMPLAINT: Swelling of feet, redness, with cellulitis. HISTORY OF PRESENT ILLNESS: She is an 89-year-old white female who was brought in today. I have been treating her as an outpatient with chronic leg edema due to diastolic heart failure with underlying atrial fibrillation. She was given Lasix and failed to improve with 3+ pedal edema and with bilateral cellulitis. As a result, the patient was admitted to the hospital with IV antibiotics with Zosyn, IV Lasix, and fluid restrictions to prevent the sepsis. PAST MEDICAL HISTORY: 1. COPD, on oxygen 3 L. 2. 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 3. Compression fracture of T11-T12. 4. Gout. 5. Hyperlipidemia. 6. Hypothyroidism. 7. Osteoarthritis. 8. Osteoporosis. 9. Incontinence of urine. 10. Paroxysmal atrial fibrillation. 11. Depression, with complicated grief. PAST SURGICAL HISTORY: 1. Varicose veins ligation in 1978. 2. Benign breast biopsy surgery. 3. Cholecystectomy. 4. Bilateral cataract surgery. 5. Hysterectomy. 6. Left hand lesion excised. 7. 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 ALLERGIES: Not known. MEDICATIONS: 1. Zocor 40 mg daily. 2. Synthroid 125 mcg daily. 3. Detrol LA 4 mg daily. 4. Savella 50 daily. 5. Cardizem 120 daily. 6. Eliquis 5 mg p.o. b.i.d. 7. Pepcid 20 mg q.12. 8. DuoNeb q.6 as needed. 9. Lasix 40 mg daily. 10. Loratadine 10 daily. 11. Trazodone 100 daily. 12. [place] 5 every 8 hours as needed. 13. Metoprolol 25 p.o. b.i.d. 14. Mucinex 1200 p.o. b.i.d. 15. Potassium 10 mEq daily. SOCIAL HISTORY: She is . One daughter. Retired. No smoking. No alcohol. No drug abuse. Living in [place]. Living Will, Do Not Resuscitate. FAMILY HISTORY: Father at the age of 94 from heart attack. Mom is from COPD and heart attack. HEALTH MAINTENANCE: Flu vaccine 2018, pneumococcal 2002, mammography 2019, DEXA scan 2018, colonoscopy more than 10 years ago. REVIEW OF SYSTEMS: HEENT: No headache. Vision problem on the left side. No earache. No sore throat. Neck: No goiter. No lymphadenopathy. No bruit. Cardiopulmonary: No chest pain, shortness of breath, PND, orthopnea. GI: No nausea, vomiting, abdominal pain. : No history of hesitancy, frequency, dysuria. Swelling of feet. Redness in both legs. Neurologic: No focal symptoms or weakness. PHYSICAL EXAMINATION: VITAL SIGNS: Temperature is 98.2 degrees, pulse is 82, blood pressure is 100/54, and 94%. Height 5 feet 8 inches, weight 184 pounds. HEENT: Atraumatic, normocephalic. Pupils equal, reactive to light. TMs are normal. Nose and throat within normal limits. NECK: Supple. No lymphadenopathy. No goiter. CHEST: Bilateral air entry. HEART: Irregular heart sounds. ABDOMEN: Belly is soft and nontender. Good bowel sounds. EXTREMITIES: 3+ pedal edema in both legs with cellulitis up to both knees. No obvious deficits. INVESTIGATIONS: Pending. ASSESSMENT AND PLAN: 1. 89-year-old white female with a dependent edema due to diastolic heart failure, chronic atrial fibrillation, with cellulitis. Plan intravenous Zosyn, intravenous Lasix, fluid restrictions, and daily weights. Follow up on the pending labs. 2. Chronic atrial fibrillation, currently on Cardizem for rate control, and Eliquis 5 mg p.o. b.i.d. 3. Chronic pain, on hydrocodone. 4. Hypothyroidism, on Synthroid 125 mcg daily. 5. Reactive depression, on Savella and trazodone. 6. Overactive bladder, on Detrol [place]. 7. Hyperlipidemia, on Zocor. 8. Living Will, Do Not Resuscitate. 9. Will follow up. Dr. Barragan is going to see her over the weekend. cc: Pavan Stanley MD
[2019-05-02] MEDS: NORCO-5 PO PRN (19:57)
[2019-05-02] MEDS: ZOCOR PO SCH (19:59)
[2019-05-02] MEDS: DESYREL PO SCH (19:59)
[2019-05-02] MEDS: ELIQUIS PO SCH (19:59)
[2019-05-02] MEDS: LOPRESSOR PO SCH (20:00)
--- NOTE | 2019-05-02 20:32 | Diag Imaging Result Doc PS360 ---
EXAM: CHEST-2 VIEWS 05/02/2019 HISTORY: SOB TECHNIQUE: PA and lateral chest COMMENT: There is apical pleural thickening bilaterally. There is some ill-defined opacity in the left costophrenic angle which was apparently present on 11/25/2018 and 11/18/2018. Overall there has been no significant change in the appearance of the chest. IMPRESSION: Stable chest. Electronically signed by Pieter De La Rosa 05/02/2019 8:30 PM
[2019-05-03] MEDS: NORCO-5 PO PRN ×2 (02:10→15:55)
[2019-05-03] MEDS: LASIX IV SCH ×2 (04:52→16:14)
[2019-05-03] MEDS: ZOSYN 3.375 GM in NS 50 ML IV SCH ×3 (04:52→16:14)
[2019-05-03] MEDS: PEPCID PO SCH ×2 (08:20→19:57)
[2019-05-03] MEDS: SYNTHROID PO SCH (08:20)
[2019-05-03] MEDS: DETROL LA PO SCH (08:20)
[2019-05-03] MEDS: CLARITIN PO SCH (08:20)
[2019-05-03] MEDS: ELIQUIS PO SCH ×2 (08:21→19:59)
[2019-05-03] MEDS: CARDIZEM CD PO SCH (08:21)
[2019-05-03] MEDS: SAVELLA PO SCH (08:21)
[2019-05-03] MEDS: KLOR-CON PO SCH (08:21)
[2019-05-03] MEDS: LOPRESSOR PO SCH ×2 (08:21→19:59)
--- NOTE | 2019-05-03 13:09 | PROGRESS NOTE ---
DATE: 05/03/2019 Is admitted with diastolic congestive heart failure. She has atrial fibrillation and has cellulitis. She has chronic pain syndrome from severe arthritis in both legs. Her vital signs are stable. Lungs still sound congested in lung bases. Her proBNP was 709. OBJECTIVE: Abdomen: Is soft, nontender. Extremities: Minimal leg edema noted. We are going to continue with the current management. cc: MD Pavan Thomas MD
[2019-05-03] MEDS: DESYREL PO SCH (19:59)
[2019-05-03] MEDS: ZOCOR PO SCH (19:59)
[2019-05-04] MEDS: ZOSYN 3.375 GM in NS 50 ML IV SCH ×5 (00:08→22:48)
[2019-05-04] MEDS: NORCO-5 PO PRN ×3 (00:50→20:31)
[2019-05-04] MEDS: LASIX IV SCH ×2 (05:04→16:49)
[2019-05-04] MEDS: KLOR-CON PO SCH (08:07)
[2019-05-04] MEDS: CLARITIN PO SCH (08:08)
[2019-05-04] MEDS: DETROL LA PO SCH (08:08)
[2019-05-04] MEDS: SYNTHROID PO SCH (08:08)
[2019-05-04] MEDS: CARDIZEM CD PO SCH (08:08)
[2019-05-04] MEDS: LOPRESSOR PO SCH ×2 (08:08→20:31)
[2019-05-04] MEDS: SAVELLA PO SCH (08:08)
[2019-05-04] MEDS: PEPCID PO SCH ×2 (08:08→20:31)
[2019-05-04] MEDS: ELIQUIS PO SCH ×2 (08:08→20:32)
--- NOTE | 2019-05-04 12:20 | PROGRESS NOTE ---
DATE: 05/04/2019 Ms. Antunez is getting IV Lasix for congestive heart failure. Her vital signs are stable. ProBNP was 709. We are going to repeat the lab work again in the morning. Her chest x-ray was almost unremarkable from the previous x-ray. cc: MD Pavan Thomas MD
[2019-05-04] MEDS: ZOCOR PO SCH (20:30)
[2019-05-04] MEDS: DESYREL PO SCH (20:31)
[2019-05-05] MEDS: NORCO-5 PO PRN ×3 (02:27→21:10)
[2019-05-05] MEDS: ZOSYN 3.375 GM in NS 50 ML IV SCH ×4 (05:04→23:39)
[2019-05-05] MEDS: LASIX IV SCH ×2 (05:04→16:18)
[2019-05-05 07:18] LABS: CALCIUM 9.2 mg/dL (8.8-10.2); CREATININE 1.8 mg/dL (0.5-0.9); POTASSIUM 2.9 mmol/L (3.5-5.1)
[2019-05-05] MEDS: ELIQUIS PO SCH ×2 (08:03→21:10)
[2019-05-05] MEDS: CARDIZEM CD PO SCH (08:03)
[2019-05-05] MEDS: SAVELLA PO SCH (08:03)
[2019-05-05] MEDS: DETROL LA PO SCH (08:03)
[2019-05-05] MEDS: KLOR-CON PO SCH (08:03)
[2019-05-05] MEDS: PEPCID PO SCH ×2 (08:03→21:14)
[2019-05-05] MEDS: SYNTHROID PO SCH (08:03)
[2019-05-05] MEDS: LOPRESSOR PO SCH ×2 (08:03→21:10)
[2019-05-05] MEDS: CLARITIN PO SCH (08:04)
[2019-05-05] MEDS: POTASSIUM CHLORIDE 60 MEQ in NS 500 ML IV SCH ×2 (10:43→16:18)
[2019-05-05] MEDS: ZOCOR PO SCH (21:10)
[2019-05-05] MEDS: DESYREL PO SCH (21:13)
--- NOTE | 2019-05-05 21:59 | PROGRESS NOTE ---
DATE: 05/05/2019 SUBJECTIVE: The patient is anxious to go home. Events noted over the weekend. This morning the swelling is no better. Redness is still persistent and the toes are getting blue and cyanotic. Unable to feel the pulses. REVIEW OF SYSTEMS: None reported. PHYSICAL EXAMINATION: Vital Signs: Temperature is 98 degrees. Vitals are stable. HEENT: Within normal limits. Chest: Bilateral air entry. Heart: Irregular sounds. Abdomen: Belly is soft, obese, nontender. Extremities: 2+ pedal edema. No improvement with the redness. Dependent cellulitis. Decreased blood flow in both legs. INVESTIGATIONS: Sodium 138, potassium 2.9, BUN 24, creatinine 1.8. ProBNP is 800. ASSESSMENT AND PLAN: 1. Dependent edema with cellulitis, no better and continue on IV Zosyn. I am going to decrease the to Lasix 40 mg daily since creatinine is 1.8. 2. Suspicious for peripheral arterial disease before the wound consult and we will use the extremity studies for WILLEM 3. Atrial fibrillation, rate controlled on Eliquis 4. Hypothyroidism. On Synthroid. 5. Follow up on the wound care consult and arterial flow studies. She may have chronic venous insufficiency. Needs elevation. Continue out of the bed with physical therapy. 6. Hypokalemia. Replace with potassium. LEVEL OF DOCUMENTATION: 25 minutes. cc: Pavan Stanley MD
[2019-05-06] MEDS: ZOSYN 3.375 GM in NS 50 ML IV SCH ×4 (05:24→22:20)
[2019-05-06] MEDS: NORCO-5 PO PRN ×2 (08:41→14:37)
[2019-05-06] MEDS: CLARITIN PO SCH (08:43)
[2019-05-06] MEDS: ELIQUIS PO SCH ×2 (08:43→22:19)
[2019-05-06] MEDS: LOPRESSOR PO SCH ×2 (08:43→22:19)
[2019-05-06] MEDS: SAVELLA PO SCH (08:43)
[2019-05-06] MEDS: SYNTHROID PO SCH (08:43)
[2019-05-06] MEDS: LASIX IV SCH (08:43)
[2019-05-06] MEDS: DETROL LA PO SCH (08:43)
[2019-05-06] MEDS: KLOR-CON PO SCH (08:43)
[2019-05-06] MEDS: PEPCID PO SCH ×2 (08:43→22:20)
[2019-05-06] MEDS: CARDIZEM CD PO SCH (08:44)
--- NOTE | 2019-05-06 19:55 | VASCULAR LAB ---
PROCEDURE NAME: Arterial Bilateral Legs - 05/05/2019 REFERRING PHYSICIAN: Dr. Tiffany Whitmore. INDICATIONS: The patient's toes were cold and cyanotic. She does have a history of smoking, but she quit 25 years ago. She has high blood pressure and she is a diabetic. FINDINGS: Systolic brachial blood pressure on the right is 118 mmHg, on the left 120 mmHg. Right high thigh 174 mmHg, left high thigh 169 mmHg. Right low thigh 160 mmHg, left low thigh 162 mmHg. Right calf 164 mmHg and left calf 175 mmHg. Right ankle is 156 mmHg, left ankle 147 mmHg. There is pulsatile flow in both feet and both great toes. At rest, the right ankle-brachial index is 1.30, left ankle-brachial index is 1.20. There is pulse waveforms involving all toes on the right and all toes on the left. INTERPRETATION: Despite cyanotic appearing toes bilaterally, there is good arterial blood flow to the feet and toes at rest. cc: MD Pavan Chang MD
[2019-05-06] MEDS: ZOCOR PO SCH (22:19)
[2019-05-06] MEDS: DESYREL PO SCH (22:20)
--- NOTE | 2019-05-06 22:24 | PROGRESS NOTE ---
DATE: 05/06/2019 SUBJECTIVE: The patient is anxious to go home. She still continues to have swelling and redness. Arterial flow studies were done and Dr. Cuevas reported that she has right WILLEM 1.3, left side is 1.2. There is a pulsatile waveform all the toes in the right and the left. There is a good arterial blood flow to both feet at rest. I think the swelling is more pronounced and cyanosis when she is dangling the legs and the patient is encouraged to elevate. PHYSICAL EXAMINATION: Temperature is 98.1 degrees, irregular heart. Vitals are stable.HEENT: Within normal limits. Chest: Clear. Heart: Irregular heart sounds. Belly is soft, obese, nontender, and has 3+ edema noted. ASSESSMENT AND PLAN: 1. Hypokalemia, replaced. 2. Dependent edema, most likely venous insufficiency. We will order the unna boot with compression stockings. 3. Elevated creatinine. Will decrease the Lasix. The patient on IV Zosyn. No significant improvement. Will speak to the wound consult. The patient is already on Eliquis and we will check the labs in the morning. LEVEL OF DOCUMENTATION: 25 minutes. cc: Pavan Stanley MD
[2019-05-07] MEDS: NORCO-5 PO PRN ×4 (00:20→21:39)
[2019-05-07] MEDS: ZOSYN 3.375 GM in NS 50 ML IV SCH ×5 (05:48→21:39)
[2019-05-07 07:46] LABS: HEMATOCRIT 35.5 % (37.0-47.0); HEMOGLOBIN 11.1 g/dL (12.0-16.0); MCH 28.7 PG (27-31); MCHC 31.3 g/dL (33-37); MCV 91.7 FL (81-99); MPV 9.5 FL (7.4-10.4); RBC 3.87 XMIL (4.2-5.4); WBC 6.51 X1000 (4.8-10.8)
[2019-05-07 07:56] LABS: CALCIUM 8.9 mg/dL (8.8-10.2); CREATININE 1.4 mg/dL (0.5-0.9); POTASSIUM 3.4 mmol/L (3.5-5.1)
[2019-05-07] MEDS ORDERED: KLOR-CON PO ONE (08:03)
[2019-05-07] MEDS: CLARITIN PO SCH (08:35)
[2019-05-07] MEDS: PEPCID PO SCH ×2 (08:35→21:26)
[2019-05-07] MEDS: DETROL LA PO SCH (08:35)
[2019-05-07] MEDS: SYNTHROID PO SCH (08:35)
[2019-05-07] MEDS: LOPRESSOR PO SCH ×2 (08:35→21:26)
[2019-05-07] MEDS: KLOR-CON PO SCH (08:35)
[2019-05-07] MEDS: CARDIZEM CD PO SCH (08:36)
[2019-05-07] MEDS: ELIQUIS PO SCH ×2 (08:36→21:26)
[2019-05-07] MEDS: LASIX IV SCH (08:36)
[2019-05-07] MEDS: SAVELLA PO SCH (08:36)
[2019-05-07] MEDS: DESYREL PO SCH (21:26)
[2019-05-07] MEDS: ZOCOR PO SCH (21:26)
--- NOTE | 2019-05-07 22:13 | PROGRESS NOTE ---
DATE: 05/07/2019 SUBJECTIVE: The patient's arterial flow studies were basically normal resting flow study. She still has redness due to dependent edema. She is not responding with IV antibiotics. This looks like chronic venous hypertension stasis changes. OBJECTIVE: Vital signs: Temperature is 98 degrees, pulse 88. Vitals are stable. HEENT: Within normal limits. Neck: Supple. Chest: Bilateral air entry. Cardiovascular: Regular heart sounds. Abdomen: Belly is soft, obese, nontender. Dermatologic: stasis dermatitis. INVESTIGATIONS: White cell count 6.5, hematocrit 35, platelets 292,000. Sodium 141, potassium 3.4, chloride 101, BUN 18, creatinine 1.4, glucose 111. ASSESSMENT AND PLAN: 1. Dependent edema due to venous hypertension and stasis changes. Plan is Unna boot, compression stockings. 2. Azotemia, decreased with IV Lasix. 3. Hypokalemia, replace the potassium. 4. Chronic atrial fibrillation, rate control on Eliquis and continue IV Zosyn. Appreciated wound consult. We will follow the plan of care and readdress the stasis dermatitis on Sunday. LEVEL OF DOCUMENTATION: 25 minutes. cc: Pavan Stanley MD MTDD
[2019-05-08] MEDS: ZOSYN 3.375 GM in NS 50 ML IV SCH ×4 (01:50→17:59)
[2019-05-08] MEDS: NORCO-5 PO PRN ×3 (04:42→21:28)
[2019-05-08] MEDS: LOPRESSOR PO SCH ×2 (11:57→21:28)
[2019-05-08] MEDS: CARDIZEM CD PO SCH (11:58)
[2019-05-08] MEDS: SYNTHROID PO SCH (11:58)
[2019-05-08] MEDS: PEPCID PO SCH ×2 (11:58→21:28)
[2019-05-08] MEDS: CLARITIN PO SCH (11:58)
[2019-05-08] MEDS: DETROL LA PO SCH (11:58)
[2019-05-08] MEDS: KLOR-CON PO SCH (11:58)
[2019-05-08] MEDS: LASIX IV SCH (11:59)
[2019-05-08] MEDS: SAVELLA PO SCH (11:59)
[2019-05-08] MEDS: ELIQUIS PO SCH ×2 (12:00→21:28)
[2019-05-08] MEDS ORDERED: NS IV SCH (20:12)
[2019-05-08] MEDS ORDERED: ZOSYN IV SCH (20:12)
--- NOTE | 2019-05-08 20:32 | PROGRESS NOTE ---
DATE: 05/08/2019 SUBJECTIVE: The patient is anxious to go home. Unna boot was applied, and no complaints. OBJECTIVE: Vital Signs: Stable. Chest: Clear. Cardiovascular: Irregular heart sounds. Abdomen: Belly is soft, nontender. Good bowel sounds. Neurologic: No neurological deficits. ASSESSMENT AND PLAN: Cellulitis due to venous stasis dermatitis. Continue on Unna boot. We we will change the antibiotics based on the creatinine clearance, and will check the labs in the morning. Will follow up with a wound care consult. LEVEL OF DOCUMENTATION: Twenty-five minutes. cc: Pavan Stanley MD
[2019-05-08] MEDS: ZOCOR PO SCH (21:28)
[2019-05-08] MEDS: DESYREL PO SCH (21:28)
[2019-05-09] MEDS: ZOSYN 2.25 GM in NS 50 ML IV SCH ×2 (00:08→06:33)
[2019-05-09] MEDS: NORCO-5 PO PRN ×2 (06:33→11:26)
[2019-05-09 07:01] VITALS: BP 129/82
[2019-05-09 08:03] LABS: BASO# 0.05 X1000 (0.0-0.2); BASO% 0.6 % (0.0-0.8); EOS# 0.24 X1000 (0.0-0.7); EOS% 2.8 % (0.0-10.0); HEMATOCRIT 36.2 % (37.0-47.0); HEMOGLOBIN 11.4 g/dL (12.0-16.0); IMM GRAN# 0.02 X1000 (0.0-0.04); IMM GRAN% 0.2 % (0.0-0.5); LYMPH# 1.63 X1000 (1.2-3.4); LYMPH% 19.1 % (20.5-51.1); MCH 28.6 PG (27-31); MCHC 31.5 g/dL (33-37); MONO# 0.83 X1000 (0.11-0.59); MONO% 9.7 % (1.7-9.3); MPV 9.3 FL (7.4-10.4); NEUT# 5.77 X1000 (1.4-6.5); NEUT% 67.6 % (42.2-75.2); PLT 336 X1000 (130-400); RBC 3.98 XMIL (4.2-5.4); RDW 13.8 % (11.5-14.5); WBC 8.54 X1000 (4.8-10.8)
[2019-05-09 08:31] LABS: CALCIUM 9.2 mg/dL (8.8-10.2); CREATININE 1.3 mg/dL (0.5-0.9); POTASSIUM 3.5 mmol/L (3.5-5.1)
[2019-05-09] MEDS: PEPCID PO SCH (11:24)
[2019-05-09] MEDS: LASIX IV SCH (11:25)
[2019-05-09] MEDS: KLOR-CON PO SCH (11:27)
[2019-05-09] MEDS: DETROL LA PO SCH (11:27)
[2019-05-09] MEDS: LOPRESSOR PO SCH (11:27)
[2019-05-09] MEDS: CLARITIN PO SCH (11:28)
[2019-05-09] MEDS: ELIQUIS PO SCH (11:28)
[2019-05-09] MEDS: CARDIZEM CD PO SCH (11:28)
[2019-05-09] MEDS: SYNTHROID PO SCH (11:28)
[2019-05-09] MEDS: SAVELLA PO SCH (11:28)
--- NOTE | 2019-05-10 21:53 | DISCHARGE SUMMARY ---
ADMISSION DATE: 05/02/2019 DISCHARGE DATE: 05/09/2019 DISCHARGING DIAGNOSIS: Chronic dependent edema due to venous stasis dermatitis with cellulitis. SECONDARY DIAGNOSIS: 1. Chronic obstructive pulmonary disease on oxygen 3 L. 2. 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 3. Chronic compression fracture T11-T12, gout, hyperlipidemia, hypothyroidism, osteoporosis, osteoarthritis, incontinence of urine, chronic atrial fibrillation, complicated grief with depression. 4. History of ligation of varicose vein in 1978. 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 5. Hypokalemia due to diuresis CONSULTS: Wound Care consult Марина for Unna boots and pressure stockings. BRIEF HISTORY: Please see the H and P that was done on 05/02/2019. In brief she is 89-year-old white female was admitted to the hospital with extensive swelling of feet, redness, unable to improve outpatient treatment. Patient has known history of diastolic heart failure with on Eliquis. The patient has discoloration of the toes suspicious for the PID. Initially was given IV Zosyn, Lasix, failed to improve the swelling and arterial flow studies normal WILLEM, digital blood flow noted. Since the patient has dependent edema and patient was given Unna boot with compression stockings and following that swelling is much improved. Potassium was low for which replacement was done. I did make the arrangements with the [facility] for outpatient Unna boot and compression stockings, follow up on wound clinic. LABS: White cell count 8.5, hematocrit 36.2, platelets count 336,000. Sodium 139, potassium 3.5, BUN 18, creatinine 1.3, glucose 123. ProBNP 900. DISCHARGE INSTRUCTIONS: Flu vaccine 11/27/2018, pneumococcal vaccine 23 was given 02/27/2016. Simvastatin 40 daily, Synthroid 125 mcg daily, Detrol [place] 4 mg daily, Savella 50 mg daily, Cardizem CD 120 daily, Eliquis 5 mg p.o. b.i.d., Pepcid 20 mg q.12, albuterol Atrovent nebulizers as needed, Lasix 40 daily, loratadine 10 daily, Desyrel 100 at bedtime, [place] 7.5 t.i.d. as needed, metoprolol 25 p.o. b.i.d., guaifenesin 1200 p.o. b.i.d., potassium 10 mEq daily. Outpatient [facility] for wound clinic wound care in both legs and follow up in my office in 10 days and patient is advised to elevation of the feet. cc: Pavan Stanley MD
== END 2019-05-09 11:53 | disposition home health service (06) | DRG 603 ==
LOC: DIRADM 14:14 → 3N 15:30
PROVIDERS: ADMIT Internal Medicine; ATTEND Internal Medicine

== ENCOUNTER 2019-05-28 12:30 | Inpatient (IN) ==
--- NOTE | 2019-05-28 15:18 | Diag Imaging Result Doc PS360 ---
EXAM: CHEST-2 VIEWS INDICATION: SOB TECHNIQUE: 2 views COMPARISON: 05/25/2019 FINDINGS: There is stable mild scarring at the left costophrenic angle as well as biapical scarring. The lungs are grossly clear, otherwise. There is no discrete pleural fluid collection or pneumothorax. The cardiomediastinal silhouette and central vasculature are grossly unremarkable. IMPRESSION: Stable chest with no definite acute pathology by plain radiograph. Electronically signed by Mikey Branch 05/28/2019 3:15 PM
[2019-05-28] MEDS: ZOSYN 3.375 GM in NS 50 ML IV SCH ×2 (16:05→22:02)
[2019-05-28 16:37] LABS: BASO# 0.05 X1000 (0.0-0.2); BASO% 0.4 % (0.0-0.8); EOS# 0.08 X1000 (0.0-0.7); EOS% 0.7 % (0.0-10.0); HEMATOCRIT 34.8 % (37.0-47.0); HEMOGLOBIN 11.1 g/dL (12.0-16.0); IMM GRAN# 0.03 X1000 (0.0-0.04); IMM GRAN% 0.3 % (0.0-0.5); LYMPH# 1.42 X1000 (1.2-3.4); LYMPH% 12.4 % (20.5-51.1); MCH 29.3 PG (27-31); MCHC 31.9 g/dL (33-37); MCV 91.8 FL (81-99); MONO# 1.32 X1000 (0.11-0.59); MONO% 11.5 % (1.7-9.3); MPV 9.3 FL (7.4-10.4); NEUT# 8.56 X1000 (1.4-6.5); NEUT% 74.7 % (42.2-75.2); PLT 358 X1000 (130-400); RBC 3.79 XMIL (4.2-5.4); RDW 14.5 % (11.5-14.5); WBC 11.46 X1000 (4.8-10.8)
[2019-05-28 17:10] LABS: ALB/GLOB RATIO 1.4; ALBUMIN 4.2 g/dL (3.5-5.0); CALCIUM 9.2 mg/dL (8.8-10.2); CREATININE 0.9 mg/dL (0.5-0.9); POTASSIUM 3.5 mmol/L (3.5-5.1); TOTAL BILIRUBIN 0.55 mg/dL (0.20-1.00); TOTAL PROTEIN 7.2 g/dL (6.3-8.3)
--- NOTE | 2019-05-28 17:14 | Extremity Venous Study ---
PROCEDURE NAME: Venous U/S Bilateral Legs - 05/28/2019 VIRTUAL OFFICE ASSISTANT: Dominique Mcgarry RVT. REQUESTING PHYSICIAN: Pavan Stanley MD. INDICATIONS: Edema and bruising of right thigh status post fall. The patient is on anticoagulation. FINDINGS: A somewhat limited study as the patient [*], but the veins were imaged down to the level of the knees bilaterally. The deep and superficial systems were imaged. The greater saphenous vein is surgically absent on the right. Otherwise the veins were compressible with forward flow and no evidence of intraluminal thrombus. There was some left common femoral vein reflux and fluid collection in the right thigh consistent with a hematoma. Would recommend correlation clinically. IMPRESSION: No evidence of deep or superficial thrombus at the locations imaged. cc: MD Pavan West MD
--- NOTE | 2019-05-28 18:56 | HISTORY AND PHYSICAL ---
CHIEF COMPLAINT: Fever of 101. History of fall, seen in the emergency room 5 days ago. HISTORY OF PRESENT ILLNESS: She is an 89-year-old white female brought in and seen 2 days ago after she had a fall at home while getting physical therapy. X-rays were reviewed of the hip and the knee in my office 2 days ago. There were no acute bony injuries. She is on Eliquis for chronic atrial fibrillation. She is having chronic venous insufficiency on Unna boot treatment by [facility]. The patient developed significant hematoma from the calf all the way to the popliteal area. She was not able to ambulate and running fever. Basically readmitted to the hospital for the fever workup. Hematoma on Eliquis dwindling of activities of daily living. As a result, readmitted to the hospital. PAST MEDICAL HISTORY: 1. COPD on oxygen 3 L. 2. 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 3. Compression fracture of T11-T12. 4. Gout. 5. Hyperlipidemia. 6. Hypothyroidism. 7. Osteoarthritis. 8. Osteoporosis. 9. Incontinence of urine. 10. PAF. 11. Complicated grief with depression. PAST SURGICAL HISTORY: Varicose veins ligation, benign breast biopsy, cholecystectomy, bilateral cataract surgery, hysterectomy, left hand skin lesion was excised due to invasive squamous cell/keratoacanthoma. ALLERGIES: Not known. SOCIAL HISTORY: She has been . One daughter. Retired. No smoking. No alcohol. No drug abuse. Living in [place]. Living Will, DNR. FAMILY HISTORY: Father of heart attack at 94. Mom of COPD and heart attack. Vaccinations were up-to-date. MEDICATIONS: Simvastatin 40 mg daily. Synthroid 125 mcg daily, Detrol [place] 4 mg daily, savella 50 mg daily, Cardizem CD 120 daily, Eliquis 5 mg p.o. b.i.d., Pepcid 20 mg q.12, albuterol Atrovent nebulizers q.6, Lasix 40 mg daily, loratadine 10 daily, trazodone 100 daily, metoprolol 25 p.o. b.i.d., guaifenesin 1200 p.o. b.i.d., potassium 10 mEq daily, [place] 10 Q t.i.d., Requip 1 tablet at bedtime. REVIEW OF SYSTEMS: HEENT: No headache. No sniffles. No earache. No sore throat. Neck: No goiter. No lymphadenopathy. No bruit. Cardiopulmonary: No chest pain, shortness of breath, PND, orthopnea. No cough. GI: No nausea, vomiting, abdominal pain. : No history of hesitancy, frequency, dysuria, and she has leaky bladder on diapers and leg pain on the right side, Not able to ambulate. Fever. Neurologic: No focal symptoms or weakness. PHYSICAL EXAMINATION: VITAL SIGNS: Temperature is 98 degrees, pulse 94. Vital signs are stable. 5 feet 9, 195 pounds. HEENT: Atraumatic, normocephalic. Pupils equal, reactive to light. TMs are normal. Nose and throat within normal limits. NECK: Supple. No lymphadenopathy. No goiter. CHEST: Bilateral air entry. HEART: Distant heart sounds. ABDOMEN: Belly is soft, obese, nontender. EXTREMITIES: Extensive hematoma noted on the back of the right thigh all the way down and both the legs were wrapped up with Unna boot and compression stockings. NEUROLOGIC: No obvious neurological deficits. INVESTIGATIONS: White cell count 11, hematocrit 35, platelets 358,000, SMA 7 is normal. LFTs were normal. ASSESSMENT AND PLAN: 1. An 89-year-old white female readmitted to the hospital with a fever 101. Waiting for the source and follow-up on urine cultures, blood cultures, and chest x-ray. 2. Chronic venous insufficiency. Continue local wound care. Get a venous Doppler. 3. Hematoma on the right thigh and I will hold the Eliquis for the time being, and reconcile home medications. After panculture workup, we will continue IV Zosyn. I will follow. For pain control hydrocodone. 4. Living will. DNR. Will follow. cc: MD SHANE Warren
[2019-05-28] MEDS: LOPRESSOR PO SCH (20:12)
[2019-05-28] MEDS: DESYREL PO SCH (20:12)
[2019-05-28] MEDS: ZOCOR PO SCH (20:12)
[2019-05-28] MEDS: NORCO-5 PO PRN (22:01)
[2019-05-29] MEDS: ZOSYN 3.375 GM in NS 50 ML IV SCH ×4 (03:28→22:35)
[2019-05-29] MEDS: NORCO-5 PO PRN ×3 (05:55→19:48)
[2019-05-29] MEDS: SYNTHROID PO SCH ×2 (05:56→06:01)
[2019-05-29] MEDS: CARDIZEM CD PO SCH (08:59)
[2019-05-29] MEDS: SAVELLA PO SCH (08:59)
[2019-05-29] MEDS: KLOR-CON PO SCH (08:59)
[2019-05-29] MEDS: LOPRESSOR PO SCH ×3 (08:59→20:18)
[2019-05-29] MEDS: CLARITIN PO SCH (08:59)
[2019-05-29] MEDS: LASIX IV SCH (08:59)
[2019-05-29] MEDS: DUONEB (A & A) INH PRN ×2 (11:44→16:15)
--- NOTE | 2019-05-29 18:32 | PROGRESS NOTE ---
DATE: 05/29/2019 SUBJECTIVE: The patient is a little better. Swelling is improved. Hold on Eliquis. Fever is due to urine has some infection. The patient has a suction catheter to drain the urine. Waiting for rehab. The patient is inclined to go to [facility]. OBJECTIVE: Vital Signs: Low-grade fever. Vitals are stable. HEENT: Within normal limits. Chest: Clear. Heart: Distant heart sounds. Abdomen: Belly is soft, nontender. Has a stockings on both legs. Hematoma on the back of the thigh is slowly stable. INVESTIGATIONS: Reviewed yesterday. Urine cultures grew gram-negative rods. Blood cultures are negative and chest x-ray is stable. Venous Doppler studies: No evidence of deep and superficial thrombosis noted. ASSESSMENT AND PLAN: 1. Right thigh hematoma. Off Eliquis. X-rays were negative. 2. Venous stasis dermatitis stable. 3. Fever due to urinary tract infection. Intravenous Zosyn. Follow up on culture. Out of the bed with physical therapy. DISPOSITION: We will discharge on Sunday for rehab. LEVEL OF DOCUMENTATION: 25 minutes. cc: Pavan Stanley MD
[2019-05-29] MEDS: DESYREL PO SCH (20:18)
[2019-05-29] MEDS: ZOCOR PO SCH (20:19)
[2019-05-30] MEDS: NORCO-5 PO PRN ×3 (04:59→23:09)
[2019-05-30] MEDS: ZOSYN 3.375 GM in NS 50 ML IV SCH ×4 (05:00→23:09)
[2019-05-30] MEDS: SYNTHROID PO SCH (07:16)
[2019-05-30] MEDS: KLOR-CON PO SCH (09:45)
[2019-05-30] MEDS: SAVELLA PO SCH (10:28)
[2019-05-30] MEDS: CARDIZEM CD PO SCH (10:29)
[2019-05-30] MEDS: CLARITIN PO SCH (10:29)
[2019-05-30] MEDS: LOPRESSOR PO SCH ×2 (10:29→21:17)
[2019-05-30] MEDS: LASIX IV SCH (10:29)
--- NOTE | 2019-05-30 18:47 | PROGRESS NOTE ---
DATE: 05/30/2019 SUBJECTIVE: The patient is complaining about the food, and fever was low-grade, and hematoma on the right leg is stable. REVIEW OF SYSTEMS: Otherwise none reported. OBJECTIVE: Vital signs: Temperature 99.2 degrees, pulse 102. Vitals are stable. HEENT Exam: Within normal limits. Chest: Bilateral air entry. Cardiovascular: Irregular heart sounds. Abdomen: Belly is soft, obese, nontender. Extremities: Has stockings on both legs, and hematoma stable. ASSESSMENT AND PLAN: 1. Fever is due to urinary tract infection from Klebsiella sensitive to Zosyn. 2. Right thigh injury. X-rays were negative. Hematoma due to Eliquis currently on hold. 3. Venous stasis dermatitis on Unna boot with pressure stockings. 4. Chronic atrial fibrillation, rate control on anticoagulation off Eliquis. 5. We will start on Lovenox for deep venous thrombosis prophylaxis. 6. Out of the bed with physical therapy and continue present treatment. DISPOSITION: Consider rehab on [facility] on Sunday if she is stable. Living will, DNR. LEVEL OF DOCUMENTATION: 25 minutes. cc: Pavan Stanley MD
[2019-05-30] MEDS: DESYREL PO SCH (21:17)
[2019-05-30] MEDS: ZOCOR PO SCH (21:17)
[2019-05-30] MEDS: LOVENOX SUBQ SCH (21:18)
[2019-05-31] MEDS: SYNTHROID PO SCH (06:21)
[2019-05-31] MEDS: ZOSYN 3.375 GM in NS 50 ML IV SCH ×4 (06:21→23:25)
[2019-05-31] MEDS: NORCO-5 PO PRN ×3 (06:26→23:24)
[2019-05-31] MEDS: CARDIZEM CD PO SCH (11:34)
[2019-05-31] MEDS: SAVELLA PO SCH (11:34)
[2019-05-31] MEDS: CLARITIN PO SCH (11:34)
[2019-05-31] MEDS: KLOR-CON PO SCH (11:34)
[2019-05-31] MEDS: LASIX IV SCH (11:34)
[2019-05-31] MEDS: LOPRESSOR PO SCH ×2 (11:35→21:24)
--- NOTE | 2019-05-31 14:55 | PROGRESS NOTE ---
DATE: 05/31/2019 SUBJECTIVE: Patient denies having any acute complaints this morning. OBJECTIVE: Vital Signs: Temperature 98.5 degrees, pulse 93 per minute, respiratory rate 20 per minute, blood pressure 116/64, pulse oximetry 99% on room air. General: Patient is alert and oriented x3. She does not appear to be in any acute distress. Cardiovascular System: First and second heart sounds are audible without any murmurs or gallops. Respiratory System: Bilateral lung air entry is good without any rales or rhonchi. Gastrointestinal system: Abdomen is soft and nondistended. Normal bowel sounds are present. DIAGNOSTIC DATA: No new labs have been done. IMPRESSION: 1. Urinary tract infection secondary to Klebsiella pneumoniae that is sensitive to Zosyn. 2. Right thigh hematoma secondary to apixaban therapy. 3. History of chronic atrial fibrillation. 4. Advanced age with deconditioning. PLAN: The patient will be continued with IV Zosyn until discharge early next week. She will be continued on routine medications including VTE prophylaxis with enoxaparin. We will continue with physical therapy as well. cc: MD Pavan Wilson MD
[2019-05-31] MEDS: DESYREL PO SCH (21:24)
[2019-05-31] MEDS: LOVENOX SUBQ SCH (21:24)
[2019-05-31] MEDS: ZOCOR PO SCH (21:24)
[2019-06-01] MEDS: NORCO-5 PO PRN ×3 (04:58→23:56)
[2019-06-01] MEDS: ZOSYN 3.375 GM in NS 50 ML IV SCH ×3 (04:59→17:08)
[2019-06-01] MEDS: SYNTHROID PO SCH (06:21)
[2019-06-01] MEDS: SAVELLA PO SCH (09:19)
[2019-06-01] MEDS: LOPRESSOR PO SCH ×2 (09:19→20:51)
[2019-06-01] MEDS: CARDIZEM CD PO SCH (09:20)
[2019-06-01] MEDS: KLOR-CON PO SCH (09:20)
[2019-06-01] MEDS: CLARITIN PO SCH (09:20)
--- NOTE | 2019-06-01 14:03 | PROGRESS NOTE ---
DATE: 06/01/2019 SUBJECTIVE: Patient denies having any acute complaints this morning. OBJECTIVE: Vital Signs: Temperature 98.1 degrees, pulse 79 per minute, respiratory rate 16 per minute, blood pressure 121/65, pulse oximetry 100% on room air. General: Patient is alert and oriented x3. She does not appear to be in any acute distress. Cardiovascular: First and second heart sounds are audible without any murmurs or gallops. Respiratory: No respiratory distress noted. Bilateral lung air entry is good without any rales or rhonchi. Abdomen: Benign. IMPRESSION: 1. Urinary tract infection secondary to Klebsiella pneumonia that is sensitive to Zosyn. 2. Right thigh hematoma secondary to apixaban therapy. 3. History of chronic atrial fibrillation. 4. Advanced age with deconditioning. PLAN: The patient will be continued on IV Zosyn and will also be continued on VTE prophylaxis with enoxaparin. She will have continued physical therapy. We expect her to be discharged to rehab sometime this week. cc: MD Pavan Wilson MD
[2019-06-01] MEDS: ATIVAN IV PRN ×2 (15:52→22:27)
[2019-06-01] MEDS: DESYREL PO SCH (20:49)
[2019-06-01] MEDS: LOVENOX SUBQ SCH (20:49)
[2019-06-01] MEDS: ZOCOR PO SCH (20:49)
[2019-06-02] MEDS: ZOSYN 3.375 GM in NS 50 ML IV SCH ×4 (00:08→18:08)
[2019-06-02] MEDS: SYNTHROID PO SCH (06:18)
[2019-06-02] MEDS: SAVELLA PO SCH (09:10)
[2019-06-02] MEDS: CLARITIN PO SCH (09:10)
[2019-06-02] MEDS: CARDIZEM CD PO SCH (09:10)
[2019-06-02] MEDS: LOPRESSOR PO SCH ×2 (09:10→20:59)
[2019-06-02] MEDS: KLOR-CON PO SCH (09:10)
[2019-06-02] MEDS: NORCO-5 PO PRN ×2 (14:40→22:15)
--- NOTE | 2019-06-02 18:55 | PROGRESS NOTE ---
DATE: 06/02/2019 SUBJECTIVE: The patient is doing better. All the edema and cellulitis is improved off the stockings. Hematoma still exists on the right side with osteoarthritic changes. PHYSICAL EXAMINATION: Vital Signs: Temperature is 97 degrees. Vitals are stable. HEENT: Within normal limits. Neck: Supple. Chest: Bilateral air entry. Heart: Sounds are regular. Abdomen: Belly is soft, nontender. INVESTIGATIONS: None reported. ASSESSMENT AND PLAN: 1. Dependent edema, cellulitis improving. 2. Urinary tract infection on Klebsiella. Continue on intravenous Zosyn. Will change to Levaquin. 3. Osteoarthritis, stable. 4. Hematoma, off Eliquis. 5. Deep venous thrombosis prophylaxis with Lovenox. 6. Disposition: skilled nursing placement. Will restart her home medicines prior to the discharge. Once the bed is available, we will discharge to the rehab. LEVEL OF DOCUMENTATION: 25 minutes. cc: Pavan Stanley MD
[2019-06-02] MEDS: DESYREL PO SCH (20:59)
[2019-06-02] MEDS: LOVENOX SUBQ SCH (20:59)
[2019-06-02] MEDS: ZOCOR PO SCH (20:59)
[2019-06-02] MEDS: ATIVAN IV PRN (22:14)
[2019-06-03] MEDS: ZOSYN 3.375 GM in NS 50 ML IV SCH ×2 (00:10→06:10)
[2019-06-03] MEDS: SYNTHROID PO SCH (06:10)
[2019-06-03] MEDS: SAVELLA PO SCH (08:45)
[2019-06-03] MEDS: CLARITIN PO SCH (08:46)
[2019-06-03] MEDS: KLOR-CON PO SCH (08:46)
[2019-06-03] MEDS: LOPRESSOR PO SCH (08:46)
[2019-06-03] MEDS: CARDIZEM CD PO SCH (08:46)
--- NOTE | 2019-06-03 08:59 | DISCHARGE SUMMARY ---
ADMISSION DATE: 06/01/2019 DISCHARGE DATE: 06/03/2019 DISCHARGING DIAGNOSES: 1. Altered mental status due to metabolic encephalopathy. 2. Urinary tract infection due to Klebsiella, extended-spectrum beta-lactamase negative since due to Levaquin. 3. Right thigh and upper calf hematoma due to fall exacerbated by Eliquis, stopped for 3 days. 4. Bilateral osteoarthritis of the knees. 5. Chronic venous insufficiency with cellulitis, better. 6. Chronic obstructive pulmonary disease on oxygen 3 L. 7. 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 8. Chronic compression fracture of T11-T12. 9. Gout. 10. Hyperlipidemia. 11. Hypothyroidism. 12. Osteoarthritis. 13. Osteoporosis. 14. Incontinence of urine due to urge incontinence. 15. Atrial fibrillation, paroxysmal atrial fibrillation. 16. History of complicated grief with depression. BRIEF HISTORY: Please see the H and P that was done 05/28/2019. In brief, she is an 89-year-old white female basically admitted to the hospital with a fever 101, altered mental status, dwindling of activities of daily living, had a fall, sustained a large hematoma on the back of right thigh and the right upper calf. The patient was on Eliquis. X-rays of knee and hip did not show any bony injury or fracture. She has significant osteoarthritic changes noted in both knees. The patient is running fever, workup revealed ESBL negative Klebsiella. The patient got better. Family is requested to go for rehab for convalescence. Rest of the hospital course was uneventful. LABORATORY: White cell count 11, hematocrit 35, platelets 358,000. Sodium 130, potassium 3.5, chloride 93, BUN 16, creatinine 0.9. LFTs were normal. Urine culture is positive for Klebsiella. Blood cultures were negative. Extremity venous studies: No evidence of deep vein thrombosis. Chest x-ray stable. No acute disease. DISCHARGE INSTRUCTIONS: 1. Living will, Do Not Resuscitate. 2. Flu vaccine 11/27/2018, pneumococcal PPV-23 was given 2016. 3. Simvastatin 40 mg daily. 4. Synthroid 125 mcg daily. 5. Detrol LA 4 mg daily. 6. Savella 50 mg daily. 7. Cardizem CD 120 daily. 8. Eliquis 5 mg p.o. b.i.d. 9. Pepcid 20 mg q.12. 10. Nebulizers q.6 as needed. 11. Lasix 40 mg daily. 12. Loratadine 10 mg daily. 13. Desyrel 100 at bedtime. 14. Metoprolol 25 p.o. b.i.d. 15. Mucinex 1200 p.o. b.i.d. 16. Potassium 10 mEq daily. 17. Requip 0.25 mg at bedtime. 18. Malone 5 q.8 as needed for pain. 19. Follow up in my office in 2 weeks. cc: Pavan Stanley MD
[2019-06-03 11:53] VITALS: BP 124/64
== END 2019-06-03 12:41 | disposition swing bed (61) | DRG 689 ==
LOC: INTOOBSV 12:30 → DIRADM 12:30 → 3N 13:25
PROVIDERS: ADMIT Internal Medicine; ATTEND Internal Medicine